=== PATIENT | female | born 1995 | race African-American/Black ===

== ENCOUNTER 2018-04-26 14:35 | Emergency (ER) | payer OTHER ==
[2018-04-26] MEDS ORDERED: ALBUTEROL SO4 2.5/IPRATROPIUM 0.5 INH SOL 3 ML VIAL.NEB. NEB ONE ×2 (14:52→15:15)
--- NOTE | 2018-04-26 14:54 | PDOC ---
History of Present Illness - General Chief Complaint: Cold Symptoms Stated Complaint: COUGH Time Seen by Provider: 04/26/18 14:39 - History of Present Illness Initial Comments: 04/26/18 15:29 22 years old no significant past medical history presents to the emergency department with one-month history of runny nose. Over the last week patient has been complaining of congestion sore throat cough with mild substernal ache. Cough is slightly productive with yellowish tinged sputum sore throat is persistent concent this morning she woke up with tight feeling in her throat which resolved on its own Symptoms are mild to moderate persistent constant over the last week. Boyfriend has exact same symptomatology. Past History - Past Medical History Allergies/Adverse Reactions: Allergies Allergy/AdvReac Type Severity Reaction Status Date / Time No Known Allergies Allergy Verified 03/30/16 16:17 Home Medications: Ambulatory Orders Norgestimate-Ethinyl Estradiol [Trinessa Lo Tablet] 1 each PO DAILY 03/30/16 Albuterol Sulfate Inhaler - [Ventolin Hfa Inhaler -] 1 - 2 inh PO Q4H #1 inhaler 04/26/18 - Suicide/Smoking/Psychosocial Hx Smoking History: Never smoked Hx Alcohol Use: No Drug/Substance Use Hx: No Substance Use Type: None Review of Systems - Review of Systems Comments:: 04/26/18 15:30 ROS: A complete review of 10 out of 10 review of systems is taken and is negative apart from what is previously mentioned below and in the HPI. *Physical Exam - Physical Exam Comments: 04/26/18 15:30 Vitals: Triage Vital signs reviewed General Appearance: no acute distress, well nourished well developed, Head: Atraumatic, Eyes: Pupils equal reactive round, extraocular movement intact Ears: TM's normal bilaterally; Nose: Nares patent bilaterally;+ nasal congestion Throat: Posterior oropharynx without erythema, mucous membranes moist, Neck: Supple;No Nucal rigidity Chest Wall: Nontender Cardiac: Regular rate and rhythym, no murmurs, no rubs, no gallops, Lungs: Clear to auscultation bilateral, good air movement bilaterally, Abdomen: Soft, non distended, normal bowel sounds, non tender to palpation Extremities: Full range of motion to all extremities, no cyanosis, clubbing, or edema Skin: Warm and dry, no rashes or lesions, no rash, no petechiae Psych: normal mood, normal affect ED Treatment Course - RADIOLOGY Radiology Studies Ordered: Category Date Time Status CHEST PA & LAT [RAD] Stat Radiology 04/26/18 14:52 Ordered Medical Decision Making - Medical Decision Making 04/26/18 15:31 Well-appearing no apparent distress history examination consistent worsening URI. No focal lung findings given slightly tinged sputum chest x-ray performed which demonstrated no acute infiltrate Status post one nebulizer treatment patient's cough feels better. We'll to this chart with Ventolin MDI as well as Flonase and Afrin for 3 days Findings, the need for follow-up and strict return instructions discussed with patient. *DC/Admit/Observation/Transfer Diagnosis at time of Disposition: Upper respiratory infection Qualifiers: URI type: unspecified viral URI Qualified Code(s): J06.9 - Acute upper respiratory infection, unspecified - Discharge Dispostion Disposition: HOME Condition at time of disposition: Good Decision to Admit order: No - Referrals Referrals: [facility] [place] [Provider Group] - Patient Instructions Printed Discharge Instructions: DI for Viral Upper Respiratory Infection -- Adult Additional Instructions: Ventolin MDI as prescribed. [id number] Flonase as directed on pacakage. [id number] Afrin as directed on package for 3 days. Drink plenty of fluids. If he develop any fever progressively worsening shortness of breath or severe worsening chest pain please return to the emergency department immediately otherwise follow-up with her primary care provider or the [facility] within 2-3 days. - Post Discharge Activity
[2018-04-26 15:05] VITALS: BP 122/85; PULSE 88; TEMP 98.3; BMI 29.5
== END 2018-04-26 15:45 | disposition home or self-care (01) ==
LOC: FER 14:35
PROC: 3E0F7GC Introduction of Other Therapeutic Substance into Respiratory Tract, Via Natural or Artificial Opening (ICD-10-PCS; principal; 2018-04-26)
DX: J06.9 Acute upper respiratory infection, unspecified (principal)
CPT/HCPCS: 71046-TC-FY; 99281-25